=== PATIENT | male | born 1960 | race Two or more races ===

== ENCOUNTER 2020-07-16 00:45 | Emergency (ER) | payer SELFPAY ==
[~2020-07-16] VITALS: Ht 177.8 cm; Wt 81.6 kg
[2020-07-16] VITALS (7 sets, daily range): BP systolic 132–152; BP diastolic 70–81
[2020-07-16] MEDS ORDERED: Haloperidol 5mg/ml Inj ONE (00:49)
[2020-07-16] MEDS ORDERED: DiphenhydrAMINE 50mg/ml Inj ONE (00:49)
[2020-07-16] MEDS ORDERED: LORazepam Inj 2mg/ml 1ml ONE (00:49)
--- NOTE | 2020-07-16 00:50 | NUR ---
ED Nurse Note: pt placed in restraints per ERMD d/t pt being highly aggressive towards staff and EMS personnel. Pt agitated, restless, combative, belligerent, resistive to care, threatening staff. See assessment intervention.
--- NOTE | 2020-07-16 00:54 | NUR ---
ED Nurse Note: Pt biba from street [place] ingesting cocaine and methamphetamines. Pt found wandering street, acting belligerent, yelling and screaming profanities. Pt aao x4, ambulates with steady gait, highly aggressive and combative towards EMS and staff. Pt stated that ingestion of drugs was voluntary, amount unknown. Pt able to state where he is and purpose of visit accurately. ERMD at bedside. Awaiting further orders.
--- NOTE | 2020-07-16 01:04 | NUR ---
ED Nurse Note: ERMD at bedside
--- NOTE | 2020-07-16 01:05 | NUR ---
ED Nurse Note: pt understand need and reason for restraints. lower restraints have been removed bilaterally as pt is progressing towards goal. See assessment.
--- NOTE | 2020-07-16 01:15 | NUR ---
ED Nurse Note: pt calm and fully cooperative. Pt verbalizes full understanding of why restraints were placed and removal criteria, able to provide accurate teach-back. all restraints removed, pt skin intact, peripheral pulses present, sensation present, no swelling or skin discoloration noted. see assessment intervention.
[2020-07-16 01:21] LABS: BASOPHILS % (AUTO) 1.4 % (0.0-2.0); EOSINOPHILS % (AUTO) 0.7 % (0.0-3.0); HEMATOCRIT 35.5 % (42.0-52.0); HEMOGLOBIN 12.3 G/DL (14.2-18.0); LYMPHOCYTES % (AUTO) 32.4 % (20.0-45.0); MEAN CORPUSCULAR VOLUME 89 FL (80-99); MONOCYTES % (AUTO) 7.1 % (1.0-10.0); NEUTROPHILS % (AUTO) 58.3 % (45.0-75.0); PLATELET COUNT 227 K/UL (150-450); RED BLOOD COUNT 3.97 M/UL (4.70-6.10); RED CELL DISTRIBUTION WIDTH 12.8 % (11.6-14.8); WHITE BLOOD COUNT 7.5 K/UL (4.8-10.8)
[2020-07-16] MEDS ORDERED: Haloperidol 5mg/ml Inj IM ONE (01:30)
[2020-07-16] MEDS ORDERED: LORazepam Inj 2mg/ml 1ml IM ONE (01:30)
[2020-07-16] MEDS ORDERED: DiphenhydrAMINE 50mg/ml Inj IVP ONE (01:30)
[2020-07-16 01:31] LABS: ANION GAP 11 mmol/L (5-15); BLOOD UREA NITROGEN 24 mg/dL (7-18); CALCIUM 8.9 MG/DL (8.5-10.1); CARBON DIOXIDE 26 MMOL/L (21-32); CHLORIDE 108 MMOL/L (98-107); CREATININE 1.1 MG/DL (0.55-1.30); POTASSIUM 3.4 MMOL/L (3.5-5.1); SODIUM 145 MMOL/L (136-145)
[2020-07-16 01:38] LABS: ALANINE AMINOTRANSFERASE 26 U/L (12-78); ALBUMIN 3.6 G/DL (3.4-5.0); ALBUMIN/GLOBULIN RATIO 1.1 (1.0-2.7); ALKALINE PHOSPHATASE 48 U/L (46-116); ASPARTATE AMINO TRANSFERASE 21 U/L (15-37); BILIRUBIN,TOTAL 0.5 MG/DL (0.2-1.0)
--- NOTE | 2020-07-16 02:05 | Emergency Room Report ---
History of Present Illness General Chief Complaint: Substance Abuse Source: Patient Present Illness HPI Disclaimer: Please note that this report is being documented using [employer] technology. This can lead to erroneous entry secondary to incorrect interpretation by the dictating instrument. HPI: 59-year-old male history of bipolar disorder presented from the street agitated. He reports using cocaine tonight. On arrival to ER he is yelling, uncooperative, but denies any suicidal or homicidal ideation. He tells me he has been noncompliant with his Depakote and Seroquel for the past few days. Patient apparently here with a similar episode last week PMH: Bipolar disorder PSH: Reviewed Social Hx: Patient uses cocaine Allergies: Coded Allergies: No Known Allergies (Unverified , 07/16/20) COVID-19 Screening Contact w/high risk pt: No Experienced COVID-19 symptoms?: No COVID-19 Testing performed NURSE MIDWIFE: No Patient History Reviewed Nursing Documentation: PMH: Agreed; PSxH: Agreed Nursing Documentation-PMH Past Medical History: Deferred Review of Systems All Other Systems: negative except mentioned in HPI Physical Exam Vital Signs Date Time Temp Pulse Resp B/P (MAP) Pulse Ox O2 Delivery O2 Flow Rate FiO2 07/16/20 00:44 97.2 108 20 152/76 (101) 96 Room Air Sp02 EP Interpretation: reviewed, normal General Appearance: well appearing, other - Patient agitated and yelling Head: normocephalic, atraumatic Eyes: bilateral eye PERRL, bilateral eye EOMI ENT: hearing grossly normal, moist mucus membranes Neck: full range of motion, supple Respiratory: lungs clear, normal breath sounds, no rhonchi, no respiratory distress, no retraction, no wheezing Cardiovascular #1: normal peripheral pulses, no murmur, tachycardia Gastrointestinal: non tender, soft, non-distended, no guarding Neurologic: alert, oriented x3, no focal defects Psychiatric: other - Patient agitated, yelling, no suicidal homicidal ideation , poor impulse control Skin: normal color, warm/dry Medical Decision Making Diagnostic Impression: Primary Impression: Substance abuse Additional Impression: Bipolar disorder ER Course Patient presented agitated after using cocaine. He has a history of bipolar disorder. He states he has been noncompliant with his medications. He does have his medications at home. Patient was given Ativan and Haldol on arrival secondary to his agitation. He was briefly placed in restraints due to agitation and violent behavior. After medication patient improved, he was able to control his impulses, he was not suicidal homicidal. After approximately 6 hours of observation patient alert, oriented ambulatory mood stabilized. He is currently not meeting 5150 criteria. He will be discharged to self-care. Instructions to take his medications as previously prescribed, follow-up PMD. Avoid further illicit drug use. Return precautions given. Last Vital Signs Date Time Temp Pulse Resp B/P (MAP) Pulse Ox O2 Delivery O2 Flow Rate FiO2 07/16/20 01:30 108 20 152/76 96 07/16/20 00:54 97.2 Room Air Status: improved Disposition: HOME, SELF-CARE Condition: Stable Referrals: NOT CHOSEN [place]/,REFERRING (PCP) Cody Melvin M.D. Jul 16, 2020 02:05
--- NOTE | 2020-07-16 02:10 | NUR ---
ED Nurse Note: pt sleeping in bed, VSS no ss of distress noted. will continue to monitor.
--- NOTE | 2020-07-16 03:50 | NUR ---
ED Nurse Note: [employer] came to ED to drop off pt belongings and business card for pt.
--- NOTE | 2020-07-16 05:02 | NUR ---
ED Nurse Note: pt sleeping in bed, VSS no ss of distress noted. will continue to monitor.
--- NOTE | 2020-07-16 05:53 | NUR ---
ER DISCHARGE NOTE: Patient is cleared to be discharged home per ERMD, pt is aox4, 98% on room air, with stable vital signs. pt was given dc instructions, pt was able to verbalize understanding, pt id band removed. pt is able to ambulate with steady gait. pt took all belongings.
== END 2020-07-16 05:53 | disposition home or self-care (01) ==
LOC: EDBD 00:45 → EMR 01:15
DX: F14.10 Cocaine abuse, uncomplicated (principal); F31.9 Bipolar disorder, unspecified; Z91.14 Patient's other noncompliance with medication regimen; R00.0 Tachycardia, unspecified
CPT/HCPCS: 36415; 80053; 80307; 85025; 96372; 96374; 99284; G0480; J1200; J1630